=== PATIENT | female | born 1970 | race Caucasian/White ===

== ENCOUNTER 2018-07-11 18:31 | Emergency (ER) | payer OTHER, SELFPAY ==
[2018-07-11 18:32] VITALS: BP 166/99; PULSE 98; RESP 16; TEMP 36.2; O2SAT 100; BMI 42.5
--- NOTE | 2018-07-11 18:50 | RAD_ITS ---
STUDY: X-RAY - LEFT ELBOW REASON FOR EXAM: Female, 48 years old. Pain after twisting elbow. TECHNIQUE: 3 view(s) of the elbow. COMPARISON: None. FINDINGS: Normal visualized humerus and ulna. There is a prosthetic radial head. The prosthesis appears to Normal alignment with the capitellum. There is no obvious loosening from the underlying bone. There is mild arthrosis of the ulnotrochlear articulations. There is no acute fracture, dislocation or destructive osseous pathology. The soft tissue structures are unremarkable. RAD/Elbow min 3 Views IMPRESSION: 1. Prosthetic radial head without abnormality. 2. Mild degenerative changes of the elbow. Electronically Signed: Rodrigo Anton DO at 19:20 EST Tel [phone], Service support ,
--- NOTE | 2018-07-11 19:00 | ED.VISSUMM ---
- ER Visit Summary Date of Service: 07/11/18 Chief Complaint: [] Left elbow injury operating car return signal History of Present Illness: The patient is a 48 F [] history of left elbow fracture with titanium radial head replacement 10 years ago indicates she was turning her car signal light on when she merely felt a sharp pain in that area of her left elbow no direct trauma no other complaints any type of movement to the elbow causes pain she had no direct trauma Physical Examination: [] Her vital signs are within normal range General, no distress resting comfortably HEENT is generally unremarkable The neck is supple no adenopathy Cardiovascular, regular rate and rhythm Lungs, clear bilateral Abdomen, soft nontender Extremities, first to hold her left elbow flexed she is able to flex extend the elbow pronation supination causes some mild pain in the wrist hand function are normal pulses are symmetric and normal and strong cap refill to all digits are normal she points directly to where the radial head would be as the focus of her pain Neurologic, awake alert answering questions appropriately moving all 4 extremities Test Results: [] X-rays were obtained nonsteroidals for pain Per radiology shows nothing acute DJD explained the above to her the concept of occult injury she is fitted with a sling Naprosyn for pain she has an orthopedic surgeon in town that she can follow-up with and she will return for change in symptoms Emergency Department Course and Treatment: [] Treatment Plan: [] Disposition: [] Stable home Impression: [] Left elbow injury, history of radial head titanium disc replacement secondary to prior fracture This note was generated with [email or web address] dictation software. It may contain incorrect words, spelling, and punctuation that were not noted in review of the chart prior to signing ED Disposition - Plan for ED Patient: Chief Complaint: Upper Extremity Injury Referrals: Alexx Dickinson MD [Primary Care Provider] -
[2018-07-11] MEDS: Naproxen 500 MG Tablet PO (19:03)
--- NOTE | 2018-07-11 19:30 | ED.DEP ---
ED Disposition - Plan for ED Patient: Chief Complaint: Upper Extremity Injury Instructions: ED Fx Radial Head Prescriptions: Naproxen [Naprosyn] 500 mg PO BID PRN #20 tab Referrals: Alexx Dickinson MD [Primary Care Provider] - Additional Instructions: Sling ice follow-up with your orthopedic surgeon
[2018-07-11 19:41] VITALS: BP 142/95; PULSE 100; RESP 18; TEMP 35
== END 2018-07-11 19:48 | disposition home or self-care (01) ==
LOC: ED 19:38
PROVIDERS: Emergency Provider Emergency Medicine; Family Provider Family Medicine; PCP Family Medicine
DX: S59.902A Unspecified injury of left elbow, initial encounter (principal); X58.XXXA Exposure to other specified factors, initial encounter; Y93.89 Activity, other specified; Y92.9 Unspecified place or not applicable
CPT/HCPCS: 73080; 99283

== ENCOUNTER 2019-05-07 16:54 | Emergency (ER) | payer OTHER, SELFPAY ==
[2019-05-07 16:55] VITALS: BP 158/87; PULSE 89; RESP 16; TEMP 36.1; O2SAT 95; BMI 44.9
--- NOTE | 2019-05-07 17:03 | RAD_ITS ---
STUDY: X-RAY - RIGHT ANKLE REASON FOR EXAM: Female, 49 years old. Trauma TECHNIQUE: 3 view(s) of the ankle. COMPARISON: None. FINDINGS: There is no evidence of fracture or dislocation. There is a sclerotic cortically based lesion in the distal tibia lateral aspect, mildly expansile. Plantar calcaneal spurring is present. There are no radiodense foreign bodies. There is prominent soft tissue swelling in the lateral ankle. RAD/Ankle min 3 Views IMPRESSION: No fracture or dislocation. Prominent soft tissue swelling overlying the lateral malleolus. Sclerotic cortically based lesion in the distal tibia, lateral aspect which is mildly expansile. Likely benign in the absence of pain. 6-12 month follow-up is recommended. Electronically Signed: Toby Galloway, at 17:38 EDT Tel , Service support ,
--- NOTE | 2019-05-07 17:11 | ED.DCSUM_ITS ---
- ER Visit Summary Date of Service: 05/07/19 Chief Complaint: Right ankle pain after twisting it History of Present Illness: The patient is a 49 F past medical history fibromyalgia, hypertension high cholesterol. Was walking in her driveway she stepped in a hole she did not see twisted and injured her right ankle. Denies any knee or hip pain. No prior history or surgery to her right ankle. No other injuries. Physical Examination: Well-appearing middle-aged female. Vital signs are stable afebrile. HEENT exam unremarkable atraumatic. C-spine nontender. Lungs clear to auscultation. Heart regular rhythm no murmur. Chest wall nontender. Abdomen soft nontender normal bowel sounds no peritoneal signs. Pelvic girdle intact. Both upper extremities and left lower extremity are nontender. No deformity. Normal range of motion. Normal strength and sensation. Her right h ip and knee are nontender nonswollen. Her right ankle lateral malleolus is tender to palpation. Achilles tendon is intact. Heels nontender. Is nontender neurovascular intact. Normal light touch sensation. Normal cap refill. Normal DP pulse. Neurologically she is awake alert with no focal motor deficits. Test Results: Right ankle x-ray 3 views right shoulder dislocation. Soft tissue swelling laterally. Read by myself. Emergency Department Course and Treatment: Patient treated with Motrin for pain and swelling and [place]. Treatment Plan: Ice and elevate. Crutches. As tolerated. Aircast. [place] for pain. Motrin for swelling. Follow-up if not improving. Disposition: Discharge Impression: Right ankle sprain This note was generated with [employer] dictation software. It may contain incorrect words, spelling, and punctuation that were not noted in review of the chart prior to signing ED Disposition - Plan for ED Patient: Referrals: Alexx Dickinson MD [Primary Care Provider] -
[2019-05-07] MEDS: Ibuprofen 600 MG Tablet PO (17:21)
[2019-05-07] MEDS: HYDROcodone Bitartrate/Apap 5/325 Tablet PO (17:21)
--- NOTE | 2019-05-07 17:26 | DCINST.ED_ITS ---
ED Disposition - Plan for ED Patient: Disposition: Home or Assisted Living Instructions: Sprain, Ankle, with X-Ray Prescriptions: Hydrocodone/Acetaminophen [[place] 5-325 Tablet] 1 ea PO 4X/DAY PRN PRN 7 Days #20 tab PRN Reason: pain Prescription Printed Referrals: Alexx Dickinson MD [Primary Care Provider] - 1 Week if not improving Additional Instructions: Ice and elevate. Motrin for pain and swelling and [place] for more severe pain. Aircast and crutches initially nonweightbearing to increase as tolerated. Follow-up with your doctor if this is not improving.
[2019-05-07 17:42] VITALS: RESP 16
--- NOTE | 2019-05-07 17:43 | ED.RN ---
REVIEWED D/C INSTRUCTIONS, FOLLOW UP CARE, PRESCRIPTION, AND S/S THAT WOULD WARRANT A RETURN TO THE ED WITH PT. PT VERBALIZED AN UNDERSTANDING AND DENIES FURTHER QUESTIONS FOR THIS RN. PT SKIN P/W/D, RESP EVEN AND UNLABORED, PT A&O X 3, NO DISTRESS NOTED. PT AMBULATED OUT OF ED USING CRUTCHES.
== END 2019-05-07 17:44 | disposition home or self-care (01) ==
PROVIDERS: Emergency Provider Emergency Medicine; Family Provider Family Medicine; PCP Family Medicine
DX: S93.401A Sprain of unspecified ligament of right ankle, initial encounter (principal); X50.1XXA Overexertion from prolonged static or awkward postures, initial encounter; Y93.01 Activity, walking, marching and hiking; Y92.008 Other place in unspecified non-institutional (private) residence as the place of occurrence of the external cause; I10 Essential (primary) hypertension; E78.00 Pure hypercholesterolemia, unspecified; M79.7 Fibromyalgia; Z79.899 Other long term (current) drug therapy
CPT/HCPCS: 73610; 99285

== ENCOUNTER → 2022-02-13 | Outpatient (CLI) | payer OTHER, SELFPAY ==
[2022-02-13 11:39] LABS: D-Dimer Quantitative (DVT/PE) < 0.27 FEU/ug/m (0.27-0.49)
== END | disposition home or self-care (01) ==
LOC: LABSPEC 11:18
PROVIDERS: PCP Family Medicine; Referring Provider Family Medicine; Visit Provider Family Medicine
DX: R06.02 Shortness of breath (principal)
CPT/HCPCS: 85379